=== PATIENT | female | born 1975 | race Two or more races ===

== ENCOUNTER 2024-06-07 10:31 | Outpatient (RCR) | payer MEDICAID, SELFPAY | END 2024-06-10 23:59 | disposition home or self-care (01) | LOC: SCTC 10:31 | PROVIDERS: PCP Physician Assistant; Referring Provider Physician Assistant; Visit Provider Radiology Therapeutic Radiology | DX: Z45.2 Encounter for adjustment and management of vascular access device (principal); C18.2 Malignant neoplasm of ascending colon; C18.0 Malignant neoplasm of cecum; Z90.49 Acquired absence of other specified parts of digestive tract; Z92.21 Personal history of antineoplastic chemotherapy; K83.8 Other specified diseases of biliary tract | CPT/HCPCS: 96523; A4216; J1642 ==

== ENCOUNTER 2024-11-21 21:31 | Emergency (ER) | payer SELFPAY ==
[2024-11-21 21:32] VITALS: BMI 28.2
[2024-11-21 21:51] VITALS: BP 163/97; PULSE 85; RESP 20; TEMP 36.5; O2SAT 99
--- NOTE | 2024-11-21 22:01 | XR_ITS ---
Examination: CT abdomen with intravenous contrast CT pelvis with intravenous contrast 2-D coronal reconstructions 2-D sagittal reconstructions Date and time of exam:November 21, 2024, 11:53 PM Indications: Diagnosis colon cancer with left lower abdominal pain today Comparison: March 16, 2023. CTDI: vol (mGy) 14.16 DLP: (mGycm) 555 Technique: Multiple axial sections of the abdomen and pelvis have been obtained. 64 slice high-resolution scanner used. 3 mm axial sections have been obtained, post intravenous injection 60 cc [id number] 2-D sagittal, coronal reconstructions obtained. Low dose protocols were performed. One or more of the following dose reduction techniques were used; automated exposure control, adjustment of the mA and/or KV according to patient size, use of iterative reconstruction technique. Findings: Cirrhosis, liver nodular in contour Extrahepatic biliary tract dilatation, common hepatic duct common bile duct 18 mm Perigastric and esophageal varices No pancreatic mass Diffuse wall thickening involving the colon Marked splenomegaly Mild ascites No hydronephrosis Gastric mucosal thickening No pelvic mass Prominent vessels around the margins of the uterus Urinary bladder wall thickening Grade 1 spondylolisthesis L5 on S1 with advanced degenerative disc disease L5-S1 Impression: Gastritis pattern Cirrhosis Perigastric and esophageal varices Extrahepatic biliary tract dilatation, recommend repeat hepatobiliary sonography follow-up Mild ascites Mild splenomegaly Hepatic colopathy
--- NOTE | 2024-11-21 22:02 | PD.EDRME ---
Rapid Medical Screening Exam RME Arrival date/time: 11/21/24 21:31 49F with history of colon cancer (remission) presents to ED with 1 day of LLQ/pelvic pain, constipation, and N/V. Patient thinks pain is more pelvic than ab, but denies dysuria and vaginal bleeding. Chief Complaint: Abdominal Pain Time Seen by Provider: 11/21/24 21:57 Vital signs: Vital Signs Temperature 97.7 F 11/21/24 21:51 Pulse Rate 85 11/21/24 21:51 Respiratory Rate 20 11/21/24 21:51 Blood Pressure 163/97 H 11/21/24 21:51 Pulse Oximetry (%) 99 11/21/24 21:51 Oxygen Delivery Method Room Air 11/21/24 21:51
[2024-11-21] MEDS: MORPHINE SULF INJ 4 MG/ML VIAL 5 MG IV (22:17)
[2024-11-21] MEDS: ONDANSETRON INJ 2 MG/ML INJ 2 ML 4 MG IV (22:17)
[2024-11-21 22:23] LABS: Collection Type, Urine Clean Catch
[2024-11-21 22:24] LABS: Lactate (Lactic Acid) 1.5 mMol/L (0.4-2.0)
[2024-11-21 22:28] LABS: Basophils # (Auto) 0.1 Thou/mm3 (0.0-0.2); Basophils % (Auto) 1 % (0-2.5); Eosinophils # (Auto) 0.1 Thou/mm3 (0.0-0.5); Eosinophils % (Auto) 1 % (0-10); Hematocrit 36.5 % (36.0-46.0); Hemoglobin 12.0 g/dL (12.0-16.0); Immature Granulocytes Auto 0.02 Thou/mm3 (0.00-0.00); Lymphocytes # (Auto) 0.9 Thou/mm3 (1.0-4.8); Lymphocytes % (Auto) 12 % (10-50); Mean Corpuscular HGB Conc 32.9 g/dl (31.0-37.0); Mean Corpuscular Hemoglobin 29.4 pg (25.0-35.0); Mean Corpuscular Volume 90 fL (80-100); Monocytes # (Auto) 0.7 Thou/mm3 (0.0-0.8); Monocytes % (Auto) 9 % (0-12); Neutrophils # (Auto) 5.6 Thou/mm3 (1.8-7.7); Neutrophils % (Auto) 76 % (37-80); Nucleated Red Blood Cell # 0.00 Thou/mm3 (0.00-0.00); Nucleated Red Blood Cell % 0 /100 WBC (0); Platelet Count 124 Thou/mm3 (140-440); RDW Standard Deviation 50.1 fL (36.4-46.3); Red Blood Count 4.08 Miln/mm3 (4.00-5.20); White Blood Count 7.3 Thou/mm3 (3.6-11.0)
[2024-11-21 22:32] LABS: Amorphous Crystals,Urine Present (Absent); Bilirubin,Urine Negative (Negative); Blood,Urine 2+ (Negative); Calcium Oxalate Crystals,Urine 1+; Clarity,Urine Turbid (Clear/Hazy); Color,Urine Yellow (Lt Yel-Yel); Culture Indicated,Urine Not Indicated; Glucose, Urine Negative (Negative); Ketones,Urine Negative (Negative); Leukocyte Esterase,Urine Positive (Negative); Nitrite,Urine Negative (Negative); PH,Urine 6.5 (5.0-7.0); Protein,Urine 2+ (Neg - Trace); RBC,Urine 8 /hpf (0-3); Specific Gravity,Urine 1.024 (1.001-1.035); Squamous Epithelial Cell,Urine 5 /hpf (0-5); Urobilinogen,Urine 3.0 mg/dL (0.0-1.0); WBC,Urine 1 /hpf (0-5)
[2024-11-21 22:36] LABS: HCG Qualitative,Urine Negative
[2024-11-21 22:45] LABS: Alanine Aminotransferase 21 U/L (10-49); Albumin, Serum 4.3 gm/dL (3.5-5.0); Albumin/Globulin Ratio 1.6 (1.2-2.2); Alkaline Phosphatase 123 U/L (46-116); Amylase 72 U/L (30-118); Anion Gap 11 (7-16); Aspartate Amino Transferase 36 U/L (0-34); BUN/Creatinine Ratio 8 Ratio (12-20); Bilirubin,Total 2.2 mg/dL (0.3-1.2); Blood Urea Nitrogen 7 mg/dL (9-23); Calcium 9.3 mg/dL (8.3-10.6); Calcium (Corrected) 9.3 mg/dL (8.5-10.1); Carbon Dioxide 26.9 mMol/L (20.0-31.0); Chloride 107 mMol/L (98-107); Creatinine (Component) 0.9 mg/dL (0.6-1.3); Estimated Creatinine Clearance 59.8 mL/min (>60); Globulin 2.7 gm/dL (2.3-3.5); Glucose 110 mg/dL (74-106); Osmolality,Calculated 287 (275-295); Potassium 3.4 mMol/L (3.4-5.1); Sodium 145 mMol/L (136-145); Total Protein 7.0 gm/dL (5.7-8.2); eGFR > 60 See Note
--- NOTE | 2024-11-21 22:56 | EDNOTE_ITS ---
ED Abdominal Pain RME/HPI General Chief Complaint: Abdominal Pain Stated complaint: LLQ PAIN Time seen by provider: 11/21/24 21:57 Arrival date/time: 11/21/24 21:31 RME / HPI RME / HPI narrative: 11/21/24 21:31 49F with history of colon cancer (remission) presents to ED with 1 day of LLQ/pelvic pain, constipation, and N/V. Patient thinks pain is more pelvic than ab, but denies dysuria and vaginal bleeding. DR. NEELY MAIN ED EVALUATION: Patient presenting with LLQ abdominal pain since earlier today, increasing in intensity throughout the afternoon. Report urinary frequency and urgency, but denies dysuria. Denies fever and chills, but reports nausea without emesis. No previous similar symptoms. Pain tends to radiate toward left flank while in the supine position. PMH includes colon CA diagnosed in 2016 cured/curative and chronic diarrhea. PSHx includes partial colectomy, cholecystectomy, and C- section. No allergies reported. Social history is negative for alcohol, smoking, and drugs. Related Data Home Medications ?Medication ?Instructions ?Recorded ?Confirmed metoprolol tartrate 50 mg tablet 50 mg PO BID 07/05/18 08/24/21 Allergies Allergy/AdvReac Type Severity Reaction Status Date / Time No Known Allergies Allergy Verified 08/24/21 12:35 Review of Systems Review of Systems Systems Reviewed: All systems reviewed, normal except as documented Past Medical History Past Medical History CARDIAC: Positive Cardiac Disorders, Cardiac Arrhythmia (Tachycardia...takes mtoprolol) and Angina GASTROINTESTINAL: Positive Gastrointestinal Disorders, Gastrointestinal Bleed, Diverticulitis, Colorectal Cancer (2016) and Hemorrhoids REPRODUCTIVE: Positive Previous Pregnancies (X4) MUSCULOSKELETAL: Positive Musculoskeletal Disorders and Arthritis HEMATOLOGIC: Positive Anemia OTHER HISTORY: Positive Blood Transfusions, Chemotherapy (colon cancer), Chicken Pox (19yrs old) and Colorectal Cancer (2016) Family History FAMILY HISTORY: Positive Family Cardiac Disorders (both parents HTN) and Family Surgery (mother (, hysterectomy) Surgical History SURGICAL: Positive Abdominal Surgery (Right hemicolectomy), Bowel Surgery, Tubal Ligation and Section (X1) ED Exam Narrative Physical exam: GEN. APPEARANCE: The patient is alert awake oriented X-3 in no distress, lying down comfortably, does not look ill/toxic. Patient has good eye contact. Patient is cooperative. C/O LLQ abdominal pain. VITALS: All vitals were reviewed and the pulse ox is 99% on room air which is normal according to my interpretation. HEENT: Normocephalic, atraumatic. Pupils are equal and reactive. Oral mucosa is moist. Patent Nares NECK: Supple, nontender, no thyromegaly, no meningismus, no JVD, no step offs CHEST: Symmetrical, atraumatic, and with equal expansion , Nontender on palpation no deformity and no crepitus. CARDIOVASCULAR: Heart regular rhythm no murmur or gallop rub or extra beats. LUNGS: Clear to auscultation bilaterally with symmetrical chest rise. No laboring tachypnea or wheezing. No intercostal subcostal retraction. No rales and no rhonchi. ABDOMEN: Soft, flat, moderate TTP localized with noted guarding, no rebound tenderness. There are no abnormal masses palpated. Active and normal bowel sounds. EXTREMITIES: Nontender. No edema. No cyanosis. Patient is able to move all 4 extremities well, with full ROM and good CSM. SKIN: Warm and dry, no jaundice or rashes noted. MUSCULOSKELETAL: No lubar or midline bony tenderness. There is no CVA tenderness. No paraspinal muscle spasm or tenderness. NEURO: Patient is DRAPER x 4, Cranial nerves II through XII grossly intact. There is no focal neurologic deficits noted. GCS is 15, PNS and VP DATA appear grossly intact. PSYCHIATRIC: Patient is in normal mood and affect, cooperative, no SI or HI or hallucinations. Course Quality Measures none Orders Category Date Time Status CT Screening NOW Care 11/21/24 22:01 Active Insert IV NOW Care 11/21/24 22:[address] abdomen pelvis w con Stat Exams 11/21/24 22:01 Completed US pelvic complete Stat Exams 11/22/24 00:00 Taken Amylase Stat Lab 11/21/24 22:19 Completed CBC Stat Lab 11/21/24 22:19 Completed CMP [Comprehensive Metabolic Panel] Stat Lab 11/21/24 22:19 Completed HCG Qualitative,Urine Stat Lab 11/21/24 21:56 Completed Lactate (Lactic Acid) Stat Lab 11/21/24 22:19 Completed Stool Culture Routine Lab 11/22/24 01:35 Ordered Stool Culture Stat Lab 11/22/24 01:34 Ordered UA, C/S IF [Urinalysis, C/S if Indicated] Stat Lab 11/21/24 21:56 Completed Levofloxacin/D5w 500 mg Ivpb [Levaquin Ivpb] Med 11/22/24 01:33 Discontinued 500 mg in 100 ml IV X1 Morphine* Inj Med 11/21/24 22:01 Discontinued 5 mg IV X1 ONE Ondansetron Inj [Zofran Inj] Med 11/21/24 22:01 Discontinued 4 mg IV X1 ONE Sodium Chloride 0.9% 1000 ml [Ns] 1,000 ml Med 11/21/24 22:56 Discontinued IV 999 mls/hr metroNIDAZOLE/NS 500 MG IVPB [Flagyl 500 mg IV] Med 11/22/24 01:33 Discontinued 500 mg in 100 ml IV X1 Vital Signs Vital signs: Vital Signs Temperature 97.7 F 11/21/24 21:51 Pulse Rate 85 11/21/24 21:51 Respiratory Rate 20 11/21/24 21:51 Blood Pressure 163/97 H 11/21/24 21:51 Pulse Oximetry (%) 99 11/21/24 21:51 Oxygen Delivery Method Room Air 11/21/24 21:51 Abdominal Pain MDM MDM Narrative MDM Narrative:: Scribe Attestation: Michelle Hensley, rabia scribing for and in the presence of Dr. Neely. Provider Notation: Although this document has been carefully reviewed, there may still be some phonetic and other typographical errors. These errors are purely grammatical due to imperfections in the software program and should not be construed in any way to compromise the substance of the patient's medical care during this visit. Patient presenting with LLQ abdominal pain since earlier today, increasing in intensity throughout the afternoon. Report urinary frequency and urgency, but denies dysuria. Please see PE findings. Laboratory markers demonstrate WBC of 7.3, stable hemoglobin and slight thrombocytopenia with platelet count of 124. Serum chemistries were essentially unremarkable, bilirubin stable, alkaline phosphatase mildly elevated at 123, transaminase essentially normal. Patient placed on media monitor and referred for CT scan which demonstrates advanced cirrhotic liver disease, diffused thickening of colon thought to be due to colitis. Patient treated imperically with dual antibiotics, low-dose narcotic analegesic/anti-emetics with overall improvement, afebrile, and ambulatory without discomfort at time of discharge. Will place on low-dose diuretic - Aldactone, in addition to Augmentin and anti-emetic. Close GI f/u recommended with precautionary instructions issued. Patient data External records reviewed:: [facility] previous records (No prior ED records available for review.) Clinical information provided by:: patient Social determinants that could affect healthcare access:: none Patient has the following chronic illnesses:: Arrhythmia, Angina, Diverticulitis, Colorectal Cancer, Hemorrhoids, Diarrhea, Arthritis, Anemia How is presenting disease/condition affected by chronic disease/condition?: exacerbated by Evaluation data The following diagnostics were reviewed and interpreted by me:: lab results and radiology exam(s) Lab and/or radiology exams considered but not ordered:: None Interpretation Summary: RADIOLOGY Pelvic US: Findings: The uterus is normal in size measuring 7.0 x 3.6 x 5.1 cm. The endometrium is unremarkable and measures 0.2 cm. The right ovary measures 3.7 x 1.9 x 2.2 cm and is unremarkable. The left ovary measures 2.6 x 1.5 x 1.9 cm and is unremarkable. Both ovaries demonstrate color flow and spectral waveforms on Doppler evaluation. There is no adnexal mass. There is no free fluid on the submitted images. Impression: Unremarkable pelvic sonogram. No evidence of ovarian torsion Abdomen/Pelvis CT: Findings: Cirrhosis, liver nodular in contour Extrahepatic biliary tract dilatation, common hepatic duct common bile duct 18 mm Perigastric and esophageal varices No pancreatic mass Diffuse wall thickening involving the colon Marked splenomegaly Mild ascites No hydronephrosis Gastric mucosal thickening No pelvic mass Prominent vessels around the margins of the uterus Urinary bladder wall thickening Grade 1 spondylolisthesis L5 on S1 with advanced degenerative disc disease L5-S1 Impression: Gastritis pattern Cirrhosis Perigastric and esophageal varices Extrahepatic biliary tract dilatation, recommend repeat hepatobiliary sonography follow-up Mild ascites Mild splenomegaly Hepatic colopathy Medications / Prescriptions Medications or Prescriptions considered but not ordered:: None Medication administrations:: Medication Administration History Discontinued Medications Sodium Chloride (Ns) 1,000 mls @ 999 mls/hr IV .Q1H1M ONE Stop: 11/21/24 23:56 Last Infusion: 11/22/24 00:31 Dose: Infused Documented By: Admin: 11/21/24 23:00 Dose: 999 mls/hr Documented By: MARIZOL Metronidazole (Flagyl 500 Mg Iv) 500 mg in 100 mls @ 100 mls/hr IV X1 ONE Stop: 11/22/24 02:32 Last Infusion: 11/22/24 03:45 Dose: Infused Documented By: Admin: 11/22/24 02:39 Dose: 100 mls/hr Documented By: MARIZOL Levofloxacin/Dextrose (Levaquin Ivpb) 500 mg in 100 mls @ 100 mls/hr IV X1 ONE Stop: 11/22/24 02:32 Last Infusion: 11/22/24 02:38 Dose: Infused Documented By: Admin: 11/22/24 01:44 Dose: 100 mls/hr Documented By: MARIZOL Morphine Sulfate (Morphine Sulf Inj 4 Mg/Ml Vial) 5 mg IV X1 ONE Stop: 11/21/24 22:02 Last Admin: 11/21/24 22:17 Dose: 5 mg Documented By: MARIZOL Ondansetron HCl (Ondansetron Inj 2 Mg/Ml Inj 2 Ml) 4 mg IV X1 ONE; Protocol Stop: 11/21/24 22:02 Last Admin: 11/21/24 22:17 Dose: 4 mg Documented By: MARIZOL See above if any. Consultations Consultation(s) initiated? (list below): No Diagnosis Differential diagnosis abdominal pain: abdominal pain, calculus of kidney, constipation, diverticulitis, gastroenteritis, small bowel obstruction and other (Pyelnophritis, Cystitis) Most likely diagnosis given after review of the tests above:: Cirrhosis, Colitis Admission Indicated Admission indicated?: not indicated Explain why admission is indicated or not indicated:: Patient does not meet admission criteria Admission Request Was there a request for admission?: No Disposition Plan Disposition Plan: Discharge Discharge Attestation Discharge Attestation: The patient and all family members were given an opportunity to ask questions and understood the discharge instructions. Discharge instructions specifically effects, indications for sooner follow up or return to the emergency department, and the expected course of current diagnosis. Patient condition: Stable Discharge Plan Plan Patient Disposition: HOME (Self Care) Prescriptions/Referrals Prescriptions/Med Rec: No Action metoprolol tartrate 50 mg Tablet 50 mg PO BID Referrals: No Primary/Family,Physician [Primary Care Provider] - In 1 week Problem List Clinical Impression: Cirrhosis, Colitis Patient/Caregiver Discharge Instructions Print Language: Frisian Stand Alone Forms: Ai Award Info., Patient Portal Info Letter
[2024-11-21] MEDS: SODIUM CHLORIDE 0.9% 1000 ML 1,000 ML 999 ML IV (23:00)
--- NOTE | 2024-11-22 | XR_ITS ---
Examination: Pelvic ultrasound, transabdominal, complete Technique: Transabdominal ultrasound of the pelvis performed using grayscale imaging Date and time of exam: November 22, 2024, 0009 hrs. Indications: Left lower abdominal pelvic pain beginning today. Findings: Uterus 7.0 cm endometrial stripe 0.2 cm No uterine mass or intrauterine gestation Right ovary 3.7 cm arterial flow. Left ovary 2.6 cm arterial flow Endometrial stripe 0.2 cm Impression: Negative study
--- NOTE | 2024-11-22 00:53 | PRELIM_ITS ---
Pelvic ultrasound (transabdominal) with Doppler and wave Doppler spectral analysis. November 22, 2024 0009 hours Clinical history: Left pelvic pain Technique: Real-time, grayscale, transabdominal pelvic ultrasound was performed using Duplex scanning including arterial inflow, venous outflow, color and spectral Doppler. Comparison: None available at the time of this report. Findings: The uterus is normal in size measuring 7.0 x 3.6 x 5.1 cm. The endometrium is unremarkable and measures 0.2 cm. The right ovary measures 3.7 x 1.9 x 2.2 cm and is unremarkable. The left ovary measures 2.6 x 1.5 x 1.9 cm and is unremarkable. Both ovaries demonstrate color flow and spectral waveforms on Doppler evaluation. There is no adnexal mass. There is no free fluid on the submitted images. Impression: Unremarkable pelvic sonogram. No evidence of ovarian torsion. Report Electronically Signed By: Jose Marin 11/22/2024 12:53:10 AM [EST]
[2024-11-22] MEDS: LEVOFLOXACIN/D5W 500 MG IVPB 500 MG/100 ML BAG 100 MG IV (01:44)
[2024-11-22] MEDS: metroNIDAZOLE/NS 500 MG IVPB 500 MG/100 ML BAG 100 MG IV (02:39)
== END 2024-11-22 04:01 | disposition home or self-care (01) ==
PROVIDERS: Physician Assistant; Emergency Provider Emergency Medicine
DX: K74.60 Unspecified cirrhosis of liver (principal); K52.9 Noninfective gastroenteritis and colitis, unspecified; I85.10 Secondary esophageal varices without bleeding; R18.8 Other ascites; K82.8 Other specified diseases of gallbladder; R16.1 Splenomegaly, not elsewhere classified
CPT/HCPCS: 36415; 74177; 76856; 80053; 81001; 81025; 82150; 83605; 85025; 87015; 87045; 87046; 87899; 96361; 96365; 96366; 96375; 99283; A4649; J1956; J2270; J2405; J3490; J7030; Q9967; J1836

== ENCOUNTER → 2025-02-10 | Outpatient (CLI) | payer BC, SELFPAY ==
--- NOTE | 2025-02-10 09:30 | XR_ITS ---
Examination: Abdomen sonogram, complete Date and time of exam: February 10, 2025, 0955 hours INDICATIONS: Diagnosis cirrhosis, extrahepatic biliary tract dilatation [address] examination 11/21/2024. Technique: Multiple real-time grayscale transabdominal sonographic images of the abdomen have been obtained. Findings: Absent gallbladder Common bile duct abnormally enlarged 16 mm no definite stones Pancreas obscured by bowel gas Aorta not enlarged Liver 9.8 cm nodular contour no liver lesions Normal hepatopetal portal venous flow Patent IVC Right kidney 10.3 cm renal cortex 1.6 cm 6 mm, 6 mm renal calculi Left kidney 10.8 cm renal cortex 2.1 cm Moderate renal scar formation Spleen 12.2 cm IMPRESSION: Abnormally enlarged common bile duct 16 mm, although no definite stones, clinical correlation advised Cirrhosis, no focal liver lesions 2 right renal calculi, each 6 mm, no hydronephrosis
== END | disposition home or self-care (01) ==
LOC: CDIM 09:35
PROVIDERS: PCP Family Medicine; Referring Provider Family Medicine; Visit Provider Family Medicine
DX: K83.9 Disease of biliary tract, unspecified (principal); K74.60 Unspecified cirrhosis of liver; N20.0 Calculus of kidney
CPT/HCPCS: 76700